=== PATIENT | female | born 1970 | race Hispanic/Latino ===

== ENCOUNTER 2018-06-13 08:13 | Observation (INO) | payer OTHER ==
[2018-06-07 11:12] LABS: BASOPHILS % 0.4 % (0.0-1.0); EOSINOPHILS # (AUTO) 0.1 (0.0-0.4); EOSINOPHILS % 1.5 % (0.0-6.0); HEMOGLOBIN 13.6 g/dL (12.0-16.0); LYMPHOCYTES # (AUTO) 2.4 (1.0-3.2); LYMPHOCYTES % 34.4 % (18.0-39.1); MEAN CORPUSCULAR VOLUME 97.1 fL (81-99); MONOCYTES # (AUTO) 0.4 (0.2-0.8); MONOCYTES % 6.1 % (4.4-11.3); NEUTROPHILS % 57.3 % (38.7-80.0); PLATELET COUNT 301 x10e3/uL (140-360); RED BLOOD COUNT 4.12 x10e6/uL (3.6-5.1); RED CELL DISTRIBUTION WIDTH 12.9 % (11.7-14.4)
[2018-06-07 11:36] LABS: ALANINE AMINOTRANSFERASE 35 IU/L (0-55); ALBUMIN 3.8 g/dL (3.5-5.0); ALBUMIN/GLOBULIN RATIO 1.2 (0.8-2.0); ALKALINE PHOSPHATASE 68 IU/L (40-150); ANION GAP 8.7 mmol/L (8-16); BLOOD UREA NITROGEN 8 mg/dL (7-26); BUN/CREATININE RATIO 12 (6-25); CALCIUM 9.3 mg/dL (8.4-10.2); CARBON DIOXIDE 26 mmol/L (22-29); CHLORIDE 103 mmol/L (98-107); CREATININE, SERUM 0.65 mg/dL (0.57-1.11); EST GLOMERULAR FILTRATION RATE > 60 ML/MIN (60-); GLUCOSE 107 mg/dL (74-118); POTASSIUM 3.7 mmol/L (3.5-5.1); SODIUM 134 mmol/L (136-145)
[~2018-06-13] VITALS: Ht 157.5 cm; Wt 92.1 kg
--- OUTSIDE RECORDS SUMMARY | 2018-06-13 08:16 | XMS REPORT | Summary of Care ---
Author Author [facility] Organization [facility] Address Unknown Phone Unavailable Encounter RENETTA Daniels(KEM) [id number] Date(s): 11/15/17 - 11/15/17 [facility] [address] [place] [address], [address] [place] [address]- [phone] Discharge Disposition: Home or Self Care Attending Physician: Pooja Johnson DO Vital Signs Most recent to 1 oldest [Reference Range]: Height 157.48 cm (11/15/17 1:49 PM) Temperature Oral 98.0 DegF [96.4-99.1 DegF] (11/15/17 1:49 PM) Blood Pressure 133/82 mmHg [90-140/60-90 mmHg] (11/15/17 1:49 PM) Respiratory Rate 14 BRMIN [14-20 BRMIN] (11/15/17 1:49 PM) Peripheral Pulse 65 bpm Rate [60-100 bpm] (11/15/17 1:49 PM) Weight 90.909 kg (11/15/17 1:49 PM) Body Mass Index 36.66 m2 (11/15/17 1:49 PM) Problem List Condition Effective Dates Status Health Status Informant Yeast Active vaginitis(Confirmed) Body mass index Active (BMI) 36.0-36.9, adult(Confirmed) Vaginal Active irritation(Confirmed ) Allergies, Adverse Reactions, Alerts Substance Reaction Severity Status NKDA Active Medications fluconazole 150 mg oral tablet 150 mg=1 tab, PO, ONCE, # 1 tab, 3 Refill(s), [facility]: [id number] Start Date: 11/15/17 Status: Ordered ketoconazole topical 2% cream 1 appl, TOP, Daily, X 4 week, # 60 gm, 2 Refill(s), [id number] Start Date: 11/15/17 Stop Date: 02/07/18 Status: Ordered metroNIDAZOLE 0.75% vaginal gel with applicator 1 appl, VAG, Bedtime, # 70 gm, 2 Refill(s), Pharmacy: [facility]/pharmacy #[id number] Start Date: 11/15/17 Status: Ordered metroNIDAZOLE 500 mg oral tablet 500 mg=1 tab, PO, Q12H, X 7 day, # 14 tab, 2 Refill(s), [id number] Start Date: 11/15/17 Stop Date: 12/06/17 Status: Ordered Results No data available for this section Immunizations No data available for this section Procedures Procedure Date Related Diagnosis Body Site Status Cholecystectomy Completed Colonoscopy Completed Endoscopy Completed Social History Social History Type Response Employment/School Status: Employed. 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 Alcohol Never Smoking Status Never smoker; Exposure to Tobacco Smoke None; Cigarette Smoking Last 365 Days No; Reg Smoking Cessation Counseling No entered on: 11/15/17 Assessment and Plan No data available for this section
--- OUTSIDE RECORDS SUMMARY | 2018-06-13 08:16 | XMS REPORT | Summary of Care ---
Author Author [facility] Organization [facility] Address Unknown Phone Unavailable Encounter RENETTA Daniels(KEM) [id number] Date(s): 09/09/17 - 09/09/17 [facility] [address] [place] [address], [address] [place] [address]- [phone] Discharge Disposition: Home or Self Care Attending Physician: Pooja Johnson DO Vital Signs Most recent to 1 oldest [Reference Range]: Height 157.48 cm (09/09/17 2:05 PM) Temperature Oral 97.9 DegF [96.4-99.1 DegF] (09/09/17 2:05 PM) Blood Pressure 137/91 mmHg [90-140/60-90 mmHg] (09/09/17 2:05 PM) Respiratory Rate 14 BRMIN [14-20 BRMIN] (09/09/17 2:05 PM) Peripheral Pulse 70 bpm Rate [60-100 bpm] (09/09/17 2:05 PM) Weight 90 kg (09/09/17 2:05 PM) Body Mass Index 36.29 m2 (09/09/17 2:05 PM) Problem List Condition Effective Dates Status Health Status Informant Yeast Active vaginitis(Confirmed) Body mass index Active (BMI) 36.0-36.9, adult(Confirmed) Vaginal Active irritation(Confirmed ) Allergies, Adverse Reactions, Alerts Substance Reaction Severity Status NKDA Active Medications fluconazole 150 mg oral tablet 150 mg=1 tab, PO, ONCE, # 1 tab, 1 Refill(s), [id number] Start Date: 09/09/17 Stop Date: 11/15/17 Status: Discontinued metroNIDAZOLE 500 mg oral tablet 500 mg=1 tab, PO, Q12H, X 7 day, # 14 tab, 1 Refill(s), [id number] Start Date: 09/09/17 Stop Date: 09/23/17 Status: Completed valACYclovir 500 mg oral tablet 500 mg=1 tab, PO, Daily, 0 Refill(s) Start Date: 09/09/17 Stop Date: 11/15/17 Status: Discontinued Results No data available for this section Immunizations No data available for this section Procedures Procedure Date Related Diagnosis Body Site Status Incision and drainage of abscess (eg, 09/09/17 Completed carbuncle, suppurative hidradenitis, cutaneous or subcutaneous abscess, cyst, furuncle, or paronychia); simple or single Cholecystectomy Completed Colonoscopy Completed Endoscopy Completed Social History Social History Type Response Employment/School Status: Employed. 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 Alcohol Never Smoking Status Never smoker; Exposure to Tobacco Smoke None; Cigarette Smoking Last 365 Days No; Reg Smoking Cessation Counseling No entered on: 11/15/17 Assessment and Plan No data available for this section
--- OUTSIDE RECORDS SUMMARY | 2018-06-13 08:16 | XMS REPORT | Continuity of Care Document ---
Author Author [facility] Address Unknown Phone Unavailable Problems Problem Status Onset Date Classification Date Reported Comments Source Yeast vaginitis Active Problem 12/16/2017 [facility] Body mass index 36.0-36.9, adult(<span ID="[id number]">Confirmed</span>) Active Problem 12/16/2017 [facility] Vaginal irritation Active Problem 12/16/2017 [facility] Medications Medication Details Route Status Patient Instructions Ordering Provider Order Date Source fluconazole 150 mg oral tablet 150 mg=1 tab, PO, ONCE, # 1 tab, 3 Refill(s), [id number] 11[facility]15/2017 [facility] Ketoconazole 20 MG/ML Topical Cream 1 appl, TOP, Daily, X 4 week, # 60 gm, 2 Refill(s), Pharmacy: [facility]/pharmacy #[id number] Active 11/15/2017 [facility] Metronidazole 0.0075 MG/MG Vaginal Gel 1 appl, VAG, Bedtime, # 70 gm, 2 Refill(s), Pharmacy: [facility]/pharmacy #[id number] Active 11/15/2017 [facility] Metronidazole 500 MG Oral Tablet 500 mg=1 tab, PO, Q12H, X 7 day, # 14 tab, 2 Refill(s), Pharmacy: [facility]/pharmacy #[id number] Active 11/15/2017 [facility] Metronidazole 500 MG Oral Tablet 500 mg=1 tab, PO, Q12H, X 7 day, # 14 tab, 1 Refill(s), Pharmacy: [facility]/pharmacy #[id number] No Longer Active 09/09/2017 [facility] fluconazole 150 mg oral tablet 150 mg=1 tab, PO, ONCE, # 1 tab, 1 Refill(s), Pharmacy: [facility]/pharmacy #[id number] No Longer Active 09/09/2017 [facility] valACYclovir 500 mg oral tablet 500 mg=1 tab, PO, Daily, 0 Refill(s) No Longer Active 09/09/2017 [facility] Allergies, Adverse Reactions, Alerts Substance Category Reaction Severity Reaction type Status Date Reported Comments Source Immunizations Immunization Date Given Site Status Last Updated Comments Source Results Order Name Results Value Reference Range Date Interpretation Comments Source Vital Signs Vital Sign Value Date Comments Source BMI Calculated 36.66 11/15/2017 [facility] Weight 90.909 11/15/2017 [facility] Height 157.48 cm 11/15/2017 [facility] Temperature Oral (F) 98.0 F 11/15/2017 [facility] Respitory Rate 14 11/15/2017 [facility] Heart Rate 65 11/15/2017 [facility] Systolic (mm Hg) 133 11/15/2017 [facility] Diastolic (mm Hg) 82 11/15/2017 [facility] Weight 90 09/09/2017 [facility] Height 157.48 cm 09/09/2017 [facility] BMI Calculated 36.29 09/09/2017 [facility] Temperature Oral (F) 97.9 F 09/09/2017 [facility] Respitory Rate 14 09/09/2017 [facility] Heart Rate 70 09/09/2017 [facility] Systolic (mm Hg) 137 09/09/2017 [facility] Diastolic (mm Hg) 91 09/09/2017 [facility] Encounters Location Location Details Encounter Type Encounter Number Reason For Visit Attending Provider ADM Date DC Date Status Source Outpatient [id number] NADEGE SIDHUH 09/09/2017 Active [facility] Outpatient [id number] Nadege Sidhuh 09/09/2017 09/10/2017 [facility] Outpatient [id number] NADEGE SIDHUH 11/15/2017 [facility] [id number] Nadege Sidhuh 11/15/2017 11/16/2017 Medical [facility] Procedures Procedure Code Date Perfomer Comments Source Incision and drainage of abscess (eg, carbuncle, suppurative hidradenitis, cutaneous or subcutaneous abscess, cyst, furuncle, or paronychia); simple or single [id number] 09/09/2017 [facility] Cholecystectomy [id number] [facility] Colonoscopy [id number] [facility] Endoscopy [id number] [facility]
[2018-06-13] MEDS ORDERED: BUPIVACAINE 0.25%/EPI 30ML SDV INJ ONE (10:50)
[2018-06-13] MEDS ORDERED: ESTROGENS CONJUGATED VAGINAL CR 45 GM TUBE PV ONE (10:50)
[2018-06-13] MEDS ORDERED: HYDROCODONE/APAP 10MG-325MG TAB PO PRN (11:15)
[2018-06-13] MEDS ORDERED: DIPHENHYDRAMINE HCL 25 MG CAP PO PRN (11:15)
[2018-06-13] MEDS ORDERED: BISACODYL 5 MG TAB EC PO PRN (11:15)
[2018-06-13] MEDS ORDERED: MEPERIDINE HCL INJ 25 MG/ML VIAL IV PRN (11:15)
[2018-06-13] MEDS ORDERED: ONDANSETRON HCL INJ 2 MG/ML VIAL IV PRN (11:15)
[2018-06-13] MEDS: KETOROLAC TROMETHAMINE 30 MG/ML VIAL IM PRN ×2 (12:45→18:15)
[2018-06-13 13:30] VITALS: BP 135/75
[2018-06-13] MEDS: LACTATED RINGER'S 1,000 ML IV SCH ×3 (14:06→21:20)
[2018-06-13 14:14] VITALS: BP 135/78
--- NOTE | 2018-06-13 14:51 | Operative Report ---
DATE OF PROCEDURE: June 13, 2018 PREOPERATIVE DIAGNOSIS: Abnormal uterine bleeding. POSTOPERATIVE DIAGNOSIS: Abnormal uterine bleeding. PROCEDURE: Vaginal hysterectomy. STUDENT TEACHING COORDINATOR: ADDIS Caldwell COMPLICATIONS: None. ESTIMATED BLOOD LOSS: 50 mL. Patient was taken to the OR where general anesthesia was placed. Patient was prepped and draped in the normal sterile fashion and placed in the dorsal lithotomy position. Weighted speculum was placed inside the vagina. Cervix was grasped with a single-toothed tenaculum. Subvaginal tissue injected with Marcaine with epinephrine 0.25%, 20 mL around the cervix. A vaginal skin incision was made with the scalpel along the bladder line. The bladder was dissected off the cervix using curved Benito scissors and gentle sweeps of a Ray-Marcelo wrapped on the index finger. The was opened posteriorly and the weighted speculum was advanced in the . Curved Zeppelin clamped applied on the uterosacral ligament on each side, cut and empirically secured with a transfixion suture of Vicryl 0. The uterine vessels were clamped using the LigaSure on each side of the uterus. Vessel occluded and pedicle cut. Following this, more bites were made medial to the uterine vessel on each side of the uterus using the LigaSure. Pedicles and vessel occluded and cut. Following this, the uterus fundus was palpated at the introitus. A finger was passed anterior and opened with Metzenbaum scissors. Curved Zeppelin clamp applied on each side of the uterus. The uterus was freed and sent to pathology. The pedicles were secured with transfixion suture of Vicryl 0. Hemostasis was found to be adequate. Vagina was closed with interlocking stitches of Vicryl 0 incorporating the uterosacral ligaments without difficulty. Rivera catheter was placed inside the bladder and showed clear urine. The patient tolerated the procedure well. Vaginal pack was inserted. The patient tolerated the procedure well. Laps and instrument counts were correct times 2 at the end of the procedure. Job#: [id number]
[2018-06-13 16:07] VITALS: BP 134/71
[2018-06-13] MEDS ORDERED: ONDANSETRON HCL INJ 2 MG/ML VIAL ONE (17:50)
[2018-06-13] MEDS ORDERED: SEVOFLURANE INHAL SOLN 250 ML PEN BTL ONE (17:50)
[2018-06-13] MEDS ORDERED: PROPOFOL IV EMULSION 10 MG/ML 20 ML VIAL ONE (17:50)
[2018-06-13] MEDS ORDERED: DEXAMETHASONE SOD PHOS INJ 4 MG/ML VIAL ONE (17:50)
[2018-06-13] MEDS ORDERED: EPHEDRINE SULFATE INJ 50 MG/10 ML SYR ONE (17:50)
[2018-06-13] MEDS ORDERED: CEFAZOLIN SOD 1 GM VIAL ONE (17:50)
[2018-06-13] MEDS ORDERED: LIDOCAINE HCL 2% LOCAL INJ 5 ML SDV VIAL INJ ONE (17:50)
[2018-06-13] MEDS ORDERED: ROCURONIUM BROMIDE 10 MG/ML 5ML VIAL ONE (17:50)
[2018-06-13] MEDS ORDERED: GLYCOPYRROLATE INJ 1MG/ 5 ML SYR ONE (17:50)
[2018-06-13] MEDS ORDERED: NEOSTIGMINE 5 MG/5ML SYR ONE (17:50)
[2018-06-13] MEDS ORDERED: MIDAZOLAM HCL 2 MG/2 ML VIAL ONE (19:54)
[2018-06-13] MEDS ORDERED: FENTANYL CITRATE/PF 100MCG/2 ML INJ ONE (19:54)
[2018-06-13 20:00] VITALS: BP 110/59
[2018-06-14] VITALS: BP 116/66
[2018-06-14 04:00] VITALS: BP 117/68
[2018-06-14] MEDS: LACTATED RINGER'S 1,000 ML IV SCH (05:20)
[2018-06-14 06:17] LABS: BASOPHILS % 0.2 % (0.0-1.0); EOSINOPHILS % 0.1 % (0.0-6.0); HEMATOCRIT 34.7 % (34.2-44.1); HEMOGLOBIN 12.2 g/dL (12.0-16.0); LYMPHOCYTES # (AUTO) 2.2 (1.0-3.2); LYMPHOCYTES % 25.8 % (18.0-39.1); MEAN CORPUSCULAR HEMOGLOBIN 33.2 pg (28-32); MEAN CORPUSCULAR HGB CONC 35.2 g/dL (31-35); MEAN CORPUSCULAR VOLUME 94.6 fL (81-99); MONOCYTES # (AUTO) 0.6 (0.2-0.8); MONOCYTES % 7.5 % (4.4-11.3); NEUTROPHILS # (AUTO) 5.6 (2.1-6.9); NEUTROPHILS % 66.2 % (38.7-80.0); PLATELET COUNT 295 x10e3/uL (140-360); RED BLOOD COUNT 3.67 x10e6/uL (3.6-5.1); RED CELL DISTRIBUTION WIDTH 12.5 % (11.7-14.4)
[2018-06-14 07:47] VITALS: BP 122/66
[2018-06-14 08:27] VITALS: BP 122/66
[2018-06-14 12:02] VITALS: BP 140/74
[2018-06-14] MEDS ORDERED: TYLENOL WITH C1 EACH PO (12:50)
== END 2018-06-14 13:58 | disposition home or self-care (01) ==
LOC: OR 08:13 → PACU V 11:17 → MED/SURG 14:08
PROVIDERS: ADMIT Obstetrics & Gynecology; ATTEND Obstetrics & Gynecology
DX: D25.9 Leiomyoma of uterus, unspecified (principal); R10.2 Pelvic and perineal pain; Z01.810 Encounter for preprocedural cardiovascular examination; Z01.812 Encounter for preprocedural laboratory examination
CPT/HCPCS: 36415 ×2; 58260; 80053; 81025; 84702; 85025 ×2; 86850; 86900; 88307; 93005; G0378 ×2; J0690; J1100; J1885 ×2; J2001; J2250; J2405; J2704; J3490; J7120 ×2